=== PATIENT | female | born 1960 | race Caucasian/White ===

== ENCOUNTER 2016-06-13 21:28 | Emergency (ER) | payer SELFPAY ==
[~2016-06-13] VITALS: Ht 165.1 cm; Wt 63.0 kg
[~2016-06-13 21:28] MED LIST: CIPR500T4 PO; TRAM50 PO
[2016-06-13 21:31] VITALS: BP 161/105; PULSE 102; RESP 16; TEMP 98.4; O2SAT 97
--- NOTE | 2016-06-13 22:09 | PD ---
Physical Exam Time Seen by Provider: 22:06 Narrative 55 y/o reports [place] and she brushed against what she believes is posion pedro 2 weeks ago with her L ankle. She developed pruritic skin. for the past week she has had increasingly red and tender skin to the area. No fevers. VSS seen at triage desk. Awaiting bed placement. Data Data Last Documented VS Vital Signs Date Time Temp Pulse Resp B/P Pulse Ox O2 Delivery O2 Flow Rate FiO2 06/13/16 21:31 98.4 102 16 161/105 97 MDM Medical Record Reviewed: Yes Supervised Visit with PAMELLA: Yes Ayden Glynn Jun 13, 2016 22:09
== END 2016-06-14 01:00 | disposition left against medical advice (07) ==
LOC: NED 21:28
DX: R23.8 Other skin changes (principal)
CPT/HCPCS: 99281